=== PATIENT | female | born 2000 | race Caucasian/White ===

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

== ENCOUNTER 2019-06-12 09:43 | Emergency (ER) | payer OTHER ==
[2019-06-12 10:00] VITALS: BP 103/71
--- NOTE | 2019-06-12 10:54 | ED Physician Documentation ---
General Adult - HISTORIAN Historian: patient - HPI Stated Complaint: R knee pain Chief Complaint: General Adult Onset: days ago (5) Timing: still present Severity: moderate Further Comments: yes (Pt is a 18 yo female with injury to her R knee 5 days ago. Pt was in a playground and was climbing on a dome-shaped monkey-bar type device when she put her L leg through the bar and hyperextended her R leg at the knee as she slipped. Pt has had pain in the knee since then and is apprehensive about hyperextending it. Pt has been using crutches and a knee sleeve support and has been taking aleve.) - ROS CONST: no problems EYES/ENT: none CVS/RESP: none GI/: none MS/SKIN/LYMPH: other (R knee pain) - PAST HX Past History: other (hernia repair ) Allergies/Adverse Reactions: Allergies Allergy/AdvReac Type Severity Reaction Status Date / Time No Known Drug Allergies Allergy Unknown Verified 06/12/19 10:03 Home Medications: Ambulatory Orders Medication Instructions Recorded NK 03/03/19 - SOCIAL HX Smoking History: cigarettes - FAMILY HX Family History: No - VITAL SIGNS Vital Signs: Vital Signs Temp Pulse Resp BP Pulse Ox 74 15 103/71 98 06/12/19 09:50 06/12/19 09:50 06/12/19 09:50 06/12/19 09:50 - REVIEWED ASSESSMENTS Nursing Assessment Reviewed: Yes Vitals Reviewed: Yes Progress - Progress Progress: Continue knee support and crutches. Take Aleve twice daily with food. If symptoms persist, follow up with orthopedist at [facility] (ask for orthopedic clinic) or at [facility] Tel. [phone]. Rx Tylenol #3 (with codeine). Take one or two tablets by mouth every 6 to 8 hours as needed for pain. #20. ED Results Lab/Radiology - Orders Orders: ED Orders Category Date Time Status KNEE 3 VIEWS [RAD] Stat Exams 06/12/19 Ordered General Adult Physical Exam - PHYSICAL EXAM GENERAL APPEARANCE: mild distress NECK: normal inspection, supple RESPIRATORY: no resp distress, chest non-tender, breath sounds normal CVS: reg rate & rhythm, heart sounds normal BACK: normal inspection, no CVA tenderness SKIN: warm/dry, normal color EXTREMITIES: other (R knee; no effusion; no ligametous instability; apprehensive about full extension.) NEURO: oriented X3, motor nml, sensation nml Discharge Clincal Impression: Knee pain Qualifiers: Chronicity: acute Laterality: right Qualified Code(s): M25.561 - Pain in right knee Referrals: George Byrnes MD [Primary Care Provider] - Condition: Stable Disposition: 01 HOME, SELF-CARE Decision to Admit: NO Decision Time: 10:55
--- NOTE | 2019-06-12 13:47 | Diagnostic Imaging Report ---
HERBERT TREVINO [facility] [id number] [facility] [address] [address] Report Submission Date: Jun 12, 2019 10:45:12 AM CDT Patient Study Name: SUSIE QUINTANA Date: Jun 12, 2019 10:13:30 AM CDT Modality Type: DX Gender: F Description: KNEE 3 VIEWS : 99 Institution: [facility] Physician: HERBERT TREVINO Examination: Plain film right knee History: PT STATES MONDAY NIGHT HYPER-EXTENDED RT KNEE Findings: 2 views of the right knee demonstrates normal cortical margins. No fracture. No dislocation. No joint effusion. No soft tissue irregularity. Impression: No acute osseous abnormality Electronically signed on Jun 12, 2019 10:45:12 AM CDT by: Fuad IGLESIAS
== END 2019-06-12 11:05 | disposition home or self-care (01) ==
LOC: ED 09:43
DX: M25.561 Pain in right knee (principal)
CPT/HCPCS: 73562; 99283; 99284